=== PATIENT | female | born 1930 | race Caucasian/White ===

== ENCOUNTER 2017-09-14 09:36 | Inpatient (IN) | payer MEDICARE ==
[~2017-09-14] VITALS: Ht 147.3 cm; Wt 71.2 kg
[~2017-09-14 09:36] MED LIST: ACIPHEX20 MG PO; AMLODIPINE BESYL5 MG PO; ASPIRIN81 M1 PO; ATIVAN0.5 MG PO; CATAPRES T0.3 MG/24 TD; COREG12.5 M1 PO; COREG25 MG PO; COREG3.125 MG PO; COZAAR50 M1 PO; CYCLOBENZAPRINE5 M3 PO; DAYPRO600 M1 PO; HYDROCHLOROTH12.5 M2 PO; KEFLEX500 MG PO; LANTUS100 U/ML SC; LEVOFLOXACIN500 MG PO; LOSARTAN POTAS100 M1 PO; MACROBID100 M1 PO; NADOLOL20 MG PO; NITRO TRANS0.4 MG/HR TD; NOVOLOG MIX 70/33 ML SC; NOVOLOG10 ML SC; PLAVIX75 MG PO; ROBITUSSIN AC 110 ML PO; TRIAMTERENE/HCT1 CAP PO; ULTRAM50 MG PO; ZYRTEC10 M2 PO
[2017-09-14 09:37] VITALS: BP 171/55
[2017-09-14 09:55] LABS: BASO % 0.1 % (0.0-1.0); EOS % 0.3 % (1.0-4.0); HEMATOCRIT 26.3 % (37.0-47.0); HEMOGLOBIN 8.6 g/dl (12.0-16.0); LYMPH # 1.9 10*3/uL (1.3-4.4); LYMPH % 17.8 % (27.0-41.0); MEAN CELL VOLUME 85.4 fl (81.0-99.0); MEAN CORPUSCULAR HGB 27.9 pg (27.0-31.0); MEAN CORPUSCULAR HGB CONC 32.7 g/dl (33.0-37.0); MEAN PLATELET VOLUME 13.5 fl (9.6-12.3); MONO # 5.3 10*3/uL (0.1-1.0); MONO % 48.9 % (3.0-9.0); NEUT # 3.1 10*3/uL (2.3-7.9); PLATELET COUNT AUTOMATED 43 10*3/uL (130-400); RED BLOOD COUNT 3.08 10*6/uL (4.10-5.10); WHITE BLOOD COUNT 10.8 10*3/uL (4.8-10.8)
[2017-09-14 10:02] LABS: ACT PARTIAL THROMBO TIME 27.6 SECONDS (20.8-31.5); INTERNATIONAL NORM RATIO 1.1 (2.0-3.5)
[2017-09-14 10:09] LABS: ALBUMIN 3.3 gm/dl (3.1-4.5); ALKALINE PHOSPHATASE 53 U/L (45-117); BUN 17 mg/dl (7-24); CHLORIDE 111 mmol/L (98-107); CREATININE 1.31 mg/dL (0.55-1.02); LIPASE 151 U/L (73-393); POTASSIUM 4.5 mmol/L (3.5-5.1); SGOT/AST 13 IU/L (3-35); SGPT/ALT 11 U/L (12-78); SODIUM 143 mmol/L (136-145); TOTAL PROTEIN 6.3 gm/dL (6.4-8.2)
[2017-09-14 10:13] LABS: BASOPHILS 4 % (0-1); PLATELET SUFFICIENCY LOW (NORMAL); POLYCHROMASIA SLIGHT; TOTAL CELLS COUNTED 100 #CELLS
[2017-09-14 10:14] LABS: TROPONIN I < 0.015 ng/ml (<0.045)
--- NOTE | 2017-09-14 11:07 | NUR ---
0.5MG OF DILAUDID HAS BEEN WASTED AT THIS TIME. WITNESSED BY DEE DEE KHAN.
--- NOTE | 2017-09-14 11:46 | NUR ---
PATIENT FAMILY STATES THAT PATIENT IS RESTING PEACEFULLY AND PAIN HAS DECREASED EVEN MORE. PATIENT RATES PAIN A 7/10.
[2017-09-14 12:26] LABS: BILIRUBIN NEGATIVE (NEGATIVE); BLOOD NEGATIVE (NEGATIVE); CLARITY CLEAR (CLEAR); COLOR YELLOW (YELLOW); GLUCOSE NEGATIVE (NEGATIVE); KETONE NEGATIVE (NEGATIVE); LEUKO ESTERASE NEGATIVE (NEGATIVE); NITRITE NEGATIVE (NEGATIVE); UROBILINOGEN 0.2 E.U./dl (0.2-1.0)
[2017-09-14 12:35] LABS: BACTERIA TRACE
--- NOTE | 2017-09-14 13:20 | NUR ---
ATTEMPTED TO NOTIFY [facility] THAT PATIENT IS ADMITTED.
--- NOTE | 2017-09-14 14:26 | NUR ---
REPORT GIVEN TO JC KHAN AT THIS TIME. PATIENT TRANSPORTED BY THIS NURSE TO 5TH FLOOR.
--- NOTE | 2017-09-14 15:31 | NUR ---
REPORT GIVEN TO TIGIST KHAN AT THIS TIME.
--- NOTE | 2017-09-14 15:46 | NUR ---
PATIENT TAKEN TO ULTRASOUND AT THIS TIME BY [employer] TECH AT THIS TIME. ULTRASOUND WILL TAKE PATIENT TO THE 5TH FLOOR ROOM AFTER ULTRASOUND.
[2017-09-14 16:00] VITALS: BP 184/54
[2017-09-14 16:05] VITALS: BP 184/54
--- NOTE | 2017-09-14 16:05 | NUR ---
Time: 1604 A 86 year old FEMALE admitted to 5E under services of PRICILLA VILLEDA DO. Pt. arrived via bed from ER. Chief complaint: ABD PAIN AND C/O SOB X2 DAYS. CARRIE BROWN
[2017-09-14] MEDS ORDERED: PLAVIX75 M1 PO (16:16)
--- NOTE | 2017-09-14 16:44 | NUR ---
MED REC COMPLETED WITH MAR FROM [place], FILED ON CHART.
--- NOTE | 2017-09-14 19:52 | NUR ---
NORCO GIVEN PER ORDER FOR LEFT LOWER ABD DISCOMFORT RATED "10" PER PT. PT. SITTING UP AT SIDE OF BED HAVING PLEASANT CONVERSATION. BLENCHING.
[2017-09-14 20:00] VITALS: BP 157/75
--- NOTE | 2017-09-14 20:50 | NUR ---
NORCO EFFECTIVE FOR ABD PAIN PER PT. RATED "3"
[2017-09-15] VITALS: BP 158/50
--- NOTE | 2017-09-15 03:18 | NUR ---
Resting quietly. Resp easy and regular. No s/s of pain noted or voiced. Will continue to monitor.
--- NOTE | 2017-09-15 05:24 | NUR ---
Requested and medicated with [place] for complaints of LLabdomen pain rated as a continuous sharp pain. Will continue to monitor.
[2017-09-15 07:55] LABS: HEMOGLOBIN 7.6 g/dl (12.0-16.0); MEAN CORPUSCULAR HGB 27.5 pg (27.0-31.0); MEAN CORPUSCULAR HGB CONC 31.7 g/dl (33.0-37.0); RED BLOOD COUNT 2.76 10*6/uL (4.10-5.10); RED CELL DISTRI WIDTH 13.2 % (0-14.5)
[2017-09-15 07:56] LABS: PLATELET COUNT AUTOMATED 39 10*3/uL (130-400)
[2017-09-15 07:59] LABS: INTERNATIONAL NORM RATIO 1.1 (2.0-3.5)
[2017-09-15 08:00] VITALS: BP 151/47
[2017-09-15 08:06] LABS: ALBUMIN 2.9 gm/dl (3.1-4.5); CREATININE 1.26 mg/dL (0.55-1.02); PHOSPHOROUS 3.6 mg/dL (2.5-4.9); POTASSIUM 4.2 mmol/L (3.5-5.1); TOTAL PROTEIN 5.5 gm/dL (6.4-8.2)
[2017-09-15 08:11] LABS: BASOPHILS 2 % (0-1); THYROID STIM HORMONE (HS) 3.43 uIU/ml (0.358-4.75); TOTAL CELLS COUNTED 100 #CELLS
[2017-09-15 08:12] LABS: PLATELET SUFFICIENCY LOW (NORMAL); POLYCHROMASIA SLIGHT
[2017-09-15 09:34] LABS: VITAMIN D, 25-HYDROXY 17.3 ng/mL (30-100)
[2017-09-15 12:00] VITALS: BP 168/51
--- NOTE | 2017-09-15 13:44 | NUR ---
SW CHECKED WITH [facility]. PT IS A RESIDENT AND THEY WILL ACCEPT HER BACK. SW WILL LET THEM KNOW WHEN PT IS DISCHARGED.
[2017-09-15 16:00] VITALS: BP 161/49
--- NOTE | 2017-09-15 16:00 | NUR ---
PT GIVEN PRN PO NORCO FOR COMPLAINTS OF ABD PAIN. WILL MONITOR EFFECTIVENESS.
--- NOTE | 2017-09-15 19:30 | NUR ---
ASSUMED CARE OF PT AT THIS TIME, RESPS EASY AND NONLABORED WITH NO S/S OF DISTRESS CALL LIGHT WITH IN REACH, FAMILY IN TO VISIT PT
[2017-09-15 20:00] VITALS: BP 172/64
[2017-09-16] VITALS: BP 118/70; BP 160/56
--- NOTE | 2017-09-16 02:30 | NUR ---
PT. UP TO BATHROOM AND GOT WEAK FEELING AND SOB. PT. BACK IN BED PULSE OX 94% WITH O2. BLOOD SUGAR CHECKED PER PT. REQUEST AND WAS 134. PATIENT RESTING IN BED FEELING IS SUBSIDING. INSTRUCTED NOT TO GET UP WITHOUT PUTTING CALL LIGHT ON FOR THE STAFF TO HELP HER. PT. UNDERSTOOD.
[2017-09-16 03:15] VITALS: BP 159/58
--- NOTE | 2017-09-16 03:15 | NUR ---
PT. JANET WENT TO CHECK ON HER AND SHE HAVING TROUBLE CATCHING HER BREATH. PULSE OX 93-94% WITH O2 INCREASED O2 TO 2L. LISTENING TO HER LNG PT HAS WHEEZNING NOTED ON LEFT SIDE. PT. SAYS PAIN ISN'T BAD JUST PRESSURE. BP 159/58 HR 92 RR 22. DECREASED IV FLUIDS TO 20ML/HR.
--- NOTE | 2017-09-16 03:20 | NUR ---
CALLED DR. Haley ALDRIDGE AND NOTIFIED HER OF PT. CONDITION AND SHE IS ORDERING EKG AND OTHER THINGS AND IS COMING TO CHECK ON PT.
--- NOTE | 2017-09-16 03:25 | NUR ---
CALLED EKG AND THEY ARE COMING.
--- NOTE | 2017-09-16 03:40 | NUR ---
DR. ALDRIDGE HERE, EKG BEING DONE.
--- NOTE | 2017-09-16 04:00 | NUR ---
X-RAY TAKEN. CALLED DR. MINA PER DR. Haley ALDRIDGE REQUEST AND HE CALLED BACK AND TALKED WITH DR. ALDRIDGE. ORDERS RECEIVED. PT. STILL HAVING PRESSURE IN CHEST AREA WITH DIFFICULTY BREATHING.
--- NOTE | 2017-09-16 04:27 | NUR ---
ASA 324MG GIVEN PER ORDER. COREG GIVEN PER ORDER, NITRO 0.4 SL GIVE PER ORDER AND PRESSURE LIFTING PER PATIENT IV FLUID DECREASED TO 60ML/HR O2 2L NC IN USE.
--- NOTE | 2017-09-16 05:15 | NUR ---
DR. ALDRIDGE CALLED AND NOTIFIED OF PT. CONDITION THAT PRESSURE WAS BEING RELIEVED BY ONE NITRO. PT. RESTING QUIETLY IN RECLINER CHAIR. RESP. 20RR.
[2017-09-16 06:00] VITALS: BP 156/51
--- NOTE | 2017-09-16 06:00 | NUR ---
KHOA ORIENTED X3. NO C/O SOB AT THIS TIME. NO PRESSURE IN CHEST AT THIS TIME.PT. STATES "I'M FEELING BETTER." STILL SITTING IN CHAIR.
[2017-09-16 07:06] LABS: HEMATOCRIT 25.4 % (37.0-47.0); MEAN CELL VOLUME 86.7 fl (81.0-99.0); MEAN CORPUSCULAR HGB 27.3 pg (27.0-31.0); MEAN CORPUSCULAR HGB CONC 31.5 g/dl (33.0-37.0); MEAN PLATELET VOLUME 12.9 fl (9.6-12.3); NUCLEATED RED BLOOD CELL 0.2 % (0.0-0.0); RED BLOOD COUNT 2.93 10*6/uL (4.10-5.10); RED CELL DISTRI WIDTH 13.3 % (0-14.5); WHITE BLOOD COUNT 15.6 10*3/uL (4.8-10.8)
[2017-09-16 07:13] LABS: PLATELET COUNT AUTOMATED 48 10*3/uL (130-400)
[2017-09-16 07:29] LABS: BASOPHILS 2 % (0-1); POLYCHROMASIA SLIGHT; TOTAL CELLS COUNTED 100 #CELLS
[2017-09-16 07:30] LABS: CREATININE 1.2 mg/dL (0.55-1.02); PLATELET SUFFICIENCY LOW (NORMAL); POTASSIUM 4.5 mmol/L (3.5-5.1); ROULEAUX SLIGHT
--- NOTE | 2017-09-16 07:30 | NUR ---
ASSUMED CARE OF PT AT THIS TIME, RESPS EASY AND NONLABORED WITH NO S/S OF DISTRESS CALL LIGHT WITH IN REACH
--- NOTE | 2017-09-16 07:30 | NUR ---
[facility] CALLED TO RESIDENT NO NEW ORDERS AT THIS TIME
[2017-09-16 08:00] VITALS: BP 155/54
--- NOTE | 2017-09-16 10:13 | NUR ---
LAB CALLED WITH [facility]ON[facility], DR HANDLEY NOTIFIED , NO NEW ORDERS AT THIS TIME
--- NOTE | 2017-09-16 11:40 | NUR ---
PT MAY RETURN TO [facility] WHEN MEDICALLY STABLE.
[2017-09-16 12:00] VITALS: BP 150/60
--- NOTE | 2017-09-16 13:18 | NUR ---
HOME O2 ASSESSMENT FOLLOWS: SAT 97% WITH 2L/M APPLIED, AT REST SAT 88%, RA, AT REST SAT 93% WITH 2L/M REAPPLIED AT REST PRE HR 76 POST HR 70 RR 18 PRE BP 177/57 POST HR 150/60 RR 18 DAUGHTER STATES PT NOT ABLE TO WALK AT THIS TIME. RN NOTIFIED. WILL NOTIFY
[2017-09-16] MEDS ORDERED: MORPHINE S10 MG/5 M1 PO (14:22)
--- NOTE | 2017-09-16 17:00 | NUR ---
Discharge instructions reviewed with patient/family. Patient receptive and verbalizes understanding. Follow-up care arranged. Written instructions given to patient/family. POP VICTOR
[2017-09-17 08:10] LABS: HEPATITIS B SURFACE AG Negative (Negative); HEPATITIS C VIRUS ANTIBODY 0.1 s/co (0.0-0.9)
== END 2017-09-16 17:00 | disposition hospice, home (50) | DRG 391 ==
LOC: ED 09:36 → EDHOLD 12:55 → 5E 12:55
PROVIDERS: Emergency Medicine; Hospitalist; ADMIT Internal Medicine
DX: K57.90 Diverticulosis of intestine, part unspecified, without perforation or abscess without bleeding (principal); N17.0 Acute kidney failure with tubular necrosis; I50.21 Acute systolic (congestive) heart failure; E11.22 Type 2 diabetes mellitus with diabetic chronic kidney disease; D69.6 Thrombocytopenia, unspecified; E11.65 Type 2 diabetes mellitus with hyperglycemia; N18.3 Chronic kidney disease, stage 3 (moderate); I13.0 Hypertensive heart and chronic kidney disease with heart failure and stage 1 through stage 4 chronic kidney disease, or unspecified chronic kidney disease; E87.8 Other disorders of electrolyte and fluid balance, not elsewhere classified; D63.1 Anemia in chronic kidney disease; Z66 Do not resuscitate; Z51.5 Encounter for palliative care; M47.812 Spondylosis without myelopathy or radiculopathy, cervical region; E78.5 Hyperlipidemia, unspecified; F41.9 Anxiety disorder, unspecified; R16.1 Splenomegaly, not elsewhere classified; K76.0 Fatty (change of) liver, not elsewhere classified; Z79.4 Long term (current) use of insulin; I25.2 Old myocardial infarction; Z79.82 Long term (current) use of aspirin; Z79.02 Long term (current) use of antithrombotics/antiplatelets; Z79.899 Other long term (current) drug therapy; Z86.73 Personal history of transient ischemic attack (TIA), and cerebral infarction without residual deficits; Z98.42 Cataract extraction status, left eye; Z98.41 Cataract extraction status, right eye; Z90.49 Acquired absence of other specified parts of digestive tract; Z90.710 Acquired absence of both cervix and uterus; Z95.5 Presence of coronary angioplasty implant and graft; Z91.041 Radiographic dye allergy status; Z80.1 Family history of malignant neoplasm of trachea, bronchus and lung; Z83.3 Family history of diabetes mellitus; Z82.49 Family history of ischemic heart disease and other diseases of the circulatory system